=== PATIENT | female | born 1995 | race Caucasian/White ===

== ENCOUNTER 2018-12-16 19:02 | Emergency (ER) | payer SELFPAY ==
[2018-12-16 19:17] VITALS: BP 136/88
--- NOTE | 2018-12-16 20:19 | UC ---
Abdominal Pain Female HPI - HPI Summary HPI Summary: Onset of vomiting about 2 hours ago, now vomiting bile, followed by about 4 episodes of loose, watery, non-bloody stool. Began about 2 hours after eating pizza, which her friend also ate--not suspicious for food borne illness. No recent travel. Hx of mixed IBS and reflux, takes pantoprazole daily. Denies alcohol use and high use use of caffeine. Student at [employer], has been taking a microbiology class and working with E. coli. - History of Current Complaint Chief Complaint: UCAbdominalPain Stated Complaint: VOMITING, ABD PAIN Time Seen by Provider: 12/16/18 20:09 Hx Obtained From: Patient Hx Last Menstrual Period: iud Onset/Duration: Sudden Onset, Lasting Hours - 2 Severity Initially: Moderate Severity Currently: Moderate Pain Intensity: 7 Location: Diffuse - epigastric and joshua-umbilcal Radiates: No Character: Cramping Aggravating Factor(s): Nothing Alleviating Factor(s): Nothing Associated Signs and Symptoms: Negative: Diaphoresis, Fever, Back Pain Allergies/Adverse Reactions: Allergies Allergy/AdvReac Type Severity Reaction Status Date / Time amoxicillin Allergy dermatograp Verified 12/16/18 19:17 hia clindamycin Allergy GI Upset Verified 12/16/18 19:17 Home Medications: Home Medications Albuterol HFA INHALER* [Ventolin HFA Inhaler*] 12/16/18 [History] Dicyclomine CAP* [Bentyl CAP*] 12/16/18 [History] Pantoprazole TAB * [Protonix TAB*] 12/16/18 [History Confirmed 12/16/18] PMH/Surg Hx/FS Hx/Imm Hx Previously Healthy: Yes GI/ History: Gastroesophageal Reflux - Surgical History Surgical History: Yes Surgery Procedure, Year, and Place: tonsillectomy, upper and lower GI scope x2 - Family History Known Family History: Positive: Non-Contributory - Social History Occupation: Student Alcohol Use: None Substance Use Type: None Smoking Status (MU): Never Smoked Tobacco Review of Systems All Other Systems Reviewed And Are Negative: Yes Constitutional: Positive: Negative Skin: Positive: Negative Eyes: Positive: Negative ENT: Negative: Sore Throat Respiratory: Negative: Shortness Of Breath, Cough Gastrointestinal: Positive: Abdominal Pain, Vomiting, Diarrhea Genitourinary: Positive: Negative Motor: Positive: Negative Neurovascular: Positive: Negative Musculoskeletal: Positive: Negative Neurological: Positive: Headache Psychological: Positive: Negative Is Patient Immunocompromised?: No Physical Exam Triage Information Reviewed: Yes Appearance: Well-Appearing, Pain Distress - mild Vital Signs: Initial Vital Signs Temp 97.8 F 12/16/18 19:13 Pulse 102 12/16/18 19:13 Resp 16 12/16/18 19:13 BP 136/88 12/16/18 19:13 Pulse Ox 98 12/16/18 19:13 Eyes: Positive: Conjunctiva Clear ENT: Positive: Pharynx normal Neck: Positive: Supple, Nontender, No Lymphadenopathy Respiratory: Positive: Lungs clear, Normal breath sounds Cardiovascular: Positive: RRR, No Murmur Abdomen Description: Positive: No Organomegaly, Soft, Other: - mild tenderness in mid abdominal area without guarding or rebound Bowel Sounds: Positive: Hypoactive Musculoskeletal Exam: Normal Neurological Exam: Normal Psychological Exam: Normal Skin Exam: Normal Diagnostics - Laboratory Lab Results: UA with ketones and bili. Negative esterace. Re-Evaluation - Re-Evaluation First Eval Re-Evaluation Time: 21:30 - no further vomiting, tolerating water Change: Improved Abd Pain Female Course/Dx - Course Course Of Treatment: You have an additional dose of ondansetron to use for nausea--next dose would be due around 3 am. Ensure steady slow increase of fluids because your urien suggests that you are relatively dehydrated. Advance from clear fluids as your appetite returns, but choose easily digestible foods such as soups, cooked vegetables, and avoid fried and fatty foods. - Differential Dx/Diagnosis Differential Diagnosis: Gall Bladder Disease, Other - gastroenteritis. Provider Diagnosis: Viral gastroenteritis Discharge ED - Sign-Out/Discharge Documenting (check all that apply): Patient Departure All imaging exams completed and their final reports reviewed: No Studies - Discharge Plan Condition: Stable Disposition: HOME Patient Education Materials: Gastroenteritis (ED), Nutrition Tips for Relief of Diarrhea (ED) Referrals: Eva Finley [Primary Care Provider] - Additional Instructions: Second dose of ondansetron could be taken after 3 in the morning if nausea returns. Ensure regular intake of clear fluids, with steady slow sips of fluid. Urine suggests that you are dehydrated--aim for enough fluids to produce a clear light urine. Advance diet as your appetite returns. - Billing Disposition and Condition Condition: STABLE Disposition: Home
[2018-12-16] MEDS ORDERED: Ondansetron ODT TAB* 4 MG PO ONE ×2 (20:20→21:35)
== END 2018-12-16 22:00 | disposition home or self-care (01) ==
LOC: UCEAST 19:02
DX: A08.4 Viral intestinal infection, unspecified (principal); K21.9 Gastro-esophageal reflux disease without esophagitis
CPT/HCPCS: 81003; 81025; 99202; A9270-GY; G0463